=== PATIENT | female | born 1955 | race Caucasian/White ===

== ENCOUNTER 2017-08-05 11:34 | Inpatient (IN) | payer OTHER ==
--- NOTE | 2017-08-05 11:32 | EDPHY ---
H & P Time Seen by Provider: 08/05/17 11:35 Constitutional: Initial Vital Signs Temperature (C) 36.5 C 08/05/17 12:00 Heart Rate 52 L 08/05/17 12:00 Respiratory Rate 16 08/05/17 12:00 Blood Pressure 105/69 08/05/17 12:00 O2 Sat (%) 99 08/05/17 12:00 O2 Delivery Mode Nasal Cannula O2 (L/minute) 3 Allergies/Adverse Reactions: Sulfa (Sulfonamide Antibiotics) Allergy (Verified 08/05/17 11:43) Home Medications: Medication Instructions Recorded Aspirin 08/05/17 Medical Decision Making - Diagnostics Imaging Results: Imaging Impressions Chest X-Ray 08/05/17 11:41 Impression: Clear lungs. No acute process. Imaging: I viewed and interpreted images myself ED Course/Re-evaluation: CHIEF COMPLAINT: Cardiac Alert, neck pain HISTORY OF PRESENT ILLNESS: The patient is a 61 y/o female with a history of hypercholesterolemia and scoliosis arriving emergently via EMS from home as a Cardiac Alert with acute onset left lateral neck pain onset one week ago and worsening acutely one hour ago with nausea. She was evaluated at [facility] recently for this spinal pain, but it does not sound like she had a cardiac evaluation while there. This morning her pain became severe so she took 10mg oxycodone, but had no alleviation with this. EMS evaluated her this morning and upon performing an EKG saw inferior STEMI and brought her emergently here. She received 324mg PO aspirin en route. She normally takes a daily baby aspirin. Her father had an NM in his 60s. REVIEW OF SYSTEMS: A 10 point review of systems was performed and is negative with the exception of the elements mentioned in the history of present illness. PHYSICAL EXAM: HR 53, BP 105/69, O2 Sat, RR. Temp noted General Appearance: Alert, well hydrated, appropriate, and lethargic- appearing. Pale, diaphoretic. Head: Atraumatic without scalp tenderness or obvious injury Eyes: Pupils equal, round, reactive to light and accommodation, EOMI, no trauma , no injection. Nose: Atraumatic, no rhinorrhea, clear. Throat: Mucus membranes moist. Neck: Supple, nontender, no lymphadenopathy. Respiratory: No retractions, no distress, no wheezes, and no accessory muscle use. Lungs are clear to auscultation bilaterally. Cardiovascular: Bradycardic regular rate and rhythm, no murmurs, rubs, or gallops. Good capillary refill all extremities. Gastrointestinal: Abdomen is soft, nontender, non-distended, no masses, no rebound, no guarding, no peritoneal signs. Musculoskeletal: Normal active ROM of all extremities, atraumatic. Neurological: Alert, appropriate, and interactive. The patient has non-focal cranial nerves, motor, sensory, and cerebellar exam. Skin: No rashes, good turgor, no nodules on palpation. Pale, diaphoretic. Past medical history: Scoliosis, thyroid, high cholesterol Past surgical history: Spinal surgeries - most recent 2007 Family history: Father had diabetes, NM in his 60s Social history: , at bedside. DIAGNOSTICS/PROCEDURES/CRITICAL CARE TIME: Prehospital EKG: STEMI - inferior elevation with reciprocal changes The 12 lead EKG was interpreted by myself. Inferior STEMI with precordial reciprocal changes. See hard copy and/or "tracemaster" electronic copy for interpretation. Chest x-ray: negative. Critical care time spent by me, Dr. Koenig, exclusively with this patient was 35 minutes, exclusive of PA time and exclusive of procedures. The organ system at risk was cardiovascular. Time spent in urgent assessment, activation of Cardiac Alert, serial assessments of patient, discussion with patient and family , consideration of interventions, review of EKGs, imaging, labs, and consultation cardiology. DIFFERENTIAL DIAGNOSIS: The differential diagnosis for the patient's symptoms included but was not limited to myocardial ischemia, pulmonary embolus, chest wall pain, pleural inflammation, and pulmonary infectious causes. MEDICAL DECISION MAKIN: Met EMS upon arrival and took report. Dr. Willett, laboratory equipment cleaner, at bedside. Interventionalist paged. This is a 61 y/o female who presents progressive neck pain over the last week and inferior STEMI on prehospital EKG. She appears fatigued, pale, and diaphoretic on exam here. mill labor supervisor has been activated. Plan for IV, labs, EKG, chest x-ray while waiting for cath team. EKG here confirms inferior STEMI. 1138: Plavix preload ordered at Dr. Crockett's request, dish machine operator. Patient sent directly to ballistics laboratory gunsmith. - Data Points Laboratory Results: Laboratory Results 08/05/17 11:37 08/05/17 11:37 05/06/18 08/05/17 08/05/17 11:37 11:37 11:37 WBC 8.58 10^3/uL 10^3/uL (3.80-9.50) RBC 4.44 10^6/uL 10^6/uL (4.18-5.33) Hgb 13.5 g/dL g/dL (12.6-16.3) Hct 41.3 % % (38.0-47.0) MCV 93.0 fL fL (81.5-99.8) MCH 30.4 pg pg (27.9-34.1) MCHC 32.7 g/dL g/dL (32.4-36.7) RDW 13.2 % % (11.5-15.2) Plt Count 331 10^3/uL 10^3/uL (150-400) MPV 9.4 fL fL (8.7-11.7) Neut % (Auto) 57.9 % % (39.3-74.2) Lymph % (Auto) 31.4 % % (15.0-45.0) Piute % (Auto) 7.2 % % (4.5-13.0) Eos % (Auto) 3.0 % % (0.6-7.6) Baso % (Auto) 0.3 % % (0.3-1.7) Nucleat RBC Rel Count 0.0 % % (0.0-0.2) Absolute Neuts (auto) 4.96 10^3/uL 10^3/uL (1.70-6.50) Absolute Lymphs (auto) 2.69 10^3/uL 10^3/uL (1.00-3.00) Absolute Monos (auto) 0.62 10^3/uL 10^3/uL (0.30-0.80) Absolute Eos (auto) 0.26 10^3/uL 10^3/uL (0.03-0.40) Absolute Basos (auto) 0.03 10^3/uL 10^3/uL (0.02-0.10) Absolute Nucleated RBC 0.00 10^3/uL 10^3/uL (0-0.01) Immature Gran % 0.2 % % (0.0-1.1) Immature Gran # 0.02 10^3/uL 10^3/uL (0.00-0.10) PT 13.7 SEC SEC (12.0-15.0) INR 1.03 (0.83-1.16) APTT 21.8 SEC L SEC (23.0-38.0) Sodium 139 mEq/L mEq/L (135-145) Potassium 4.7 mEq/L mEq/L (3.5-5.2) Chloride 100 mEq/L mEq/L (97-110) Carbon Dioxide 23 mEq/l mEq/l (22-31) Anion Gap 16 mEq/L mEq/L (8-16) BUN 21 mg/dL mg/dL (7-23) Creatinine 1.0 mg/dL mg/dL (0.6-1.0) Estimated GFR 56 Glucose 155 mg/dL H mg/dL (70-100) Calcium 9.5 mg/dL mg/dL (8.5-10.4) Troponin I 0.733 ng/mL H ng/mL (0.000-0.034) Medications Given: Atorvastatin Calcium (Lipitor) 40 mg PO DAILY CHRISTIANO Stop: 02/01/18 13:14 Last Admin: 08/05/17 14:24 Dose: 40 mg Discontinued Medications Clopidogrel Bisulfate (Plavix) 600 mg PO EDNOW ONE Stop: 08/05/17 11:46 Last Admin: 08/05/17 12:03 Dose: 600 mg Sodium Chloride (Ns) 1,000 mls @ 0 mls/hr IV ONCE ONE PRN Reason: Wide Open Stop: 08/05/17 12:11 Last Admin: 08/05/17 12:00 Dose: 1,000 mls Departure - Departure Disposition: [facility] Acute Clinical Impression: STEMI (ST elevation myocardial infarction) Qualifiers: Involved coronary artery: right coronary artery Qualified Code(s): I21.11 - ST elevation (STEMI) myocardial infarction involving right coronary artery Condition: Critical Report Scribed for: Olman Koenig Report Scribed by: Dinora Mckeon Date of Report: 08/05/17 Time of Report: 11:38
[2017-08-05] MEDS ORDERED: CLOPIDOGREL BISULFATE 75 MG TAB ONE (11:38)
[2017-08-05] MEDS ORDERED: ASPIRIN 81 MG CHEWABLE TAB ONE (11:40)
[2017-08-05] MEDS ORDERED: CLOPIDOGREL BISULFATE 75 MG TAB PO ONE (11:45)
[2017-08-05 11:49] LABS: PLATELET COUNT 331 10^3/uL (150-400)
[2017-08-05] MEDS ORDERED: LIDOCAINE 1% 300 MG/30 ML SDV ONE (11:54)
[2017-08-05] MEDS ORDERED: fentaNYL 100 MCG/2 ML INJ ONE (11:54)
[2017-08-05] MEDS ORDERED: IOPAMIDOL (ISOVUE-370) 150 ML BTL IV ONE (11:54)
[2017-08-05] MEDS ORDERED: MIDAZOLAM 2 MG/2 ML VIAL ONE (11:54)
[2017-08-05] MEDS ORDERED: NITROGLYCERIN 1,500 MCG/15 ML VIAL MISC ONE (11:55)
[2017-08-05] MEDS ORDERED: BIVALIRUDIN 250 MG/5 ML VIAL IV ONE (11:55)
[2017-08-05 11:57] LABS: INR 1.03 (0.83-1.16); PROTIME(PATIENT) 13.7 SEC (12.0-15.0)
--- NOTE | 2017-08-05 12:01 | CPEKG ---
Heart Rate: 54 RR Interval: 1111 P-R Interval: 376 QRSD Interval: 74 QT Interval: 524 QTC Interval: 497 P [place]: 89 QRS [place]: 83 EKG Severity - ABNORMAL ECG - EKG Impression: SINUS RHYTHM EKG Impression: FIRST DEGREE AV BLOCK EKG Impression: INFERIOR INJURY, PROBABLE EARLY ACUTE INFARCT EKG Impression: CONSIDER POSTERIOR WALL INVOLVEMENT EKG Impression: BORDERLINE PROLONGED QT INTERVAL Electronically Signed By: Olman Koenig 05-Aug-2017 14:44:19
[2017-08-05] MEDS ORDERED: NS 1,000 ML IV ONE (12:10)
[2017-08-05] MEDS ORDERED: ATROPINE SULFATE 1 MG/10 ML SYR ONE (12:12)
[2017-08-05] MEDS ORDERED: EPINEPHrine 1 MG/10 ML SYR IVP ONE (12:12)
[2017-08-05] MEDS ORDERED: ONDANSETRON 4 MG/2 ML VIAL IVP PRN (13:06)
[2017-08-05] MEDS ORDERED: ACETAMINOPHEN 325 MG TAB PO PRN (13:06)
--- NOTE | 2017-08-05 13:07 | ASMTCMCOM ---
CM Note CM Note Notes: Pt presented to the Emergency Department via EMS with neck pain. History includes hypercholesterolemia, scoliosis, thyroid, spinal surgery in 2007. Pt found to have an inferior STEMI, taken to the medical lab technologist emergently. Pt's , Nimesh Ge at bedside. Emotional support provided to pt's . Education provided on diagnosis, procedure, plan of care. 's questions answered. given pt's jewelry including a yellow, gold colored watch, yellow, gold colored necklace and yellow, gold colored ankle bracelet. Pt's wedding ring and earrings left in place, on pt. Escorted to medical lab technologist/surgery waiting area. shown around hospital (cafeteria, restrooms, main entrance, ICU location). Pt's discharge needs remain unclear at this time. CM phone number provided to . CM will continue to follow pt and will remain available for any further issues, needs or concerns. Current Discharge Plan: To be determined Date Signed: 08/05/2017 01:05 PM Electronically Signed By:Raquel Lancaster RN
--- NOTE | 2017-08-05 13:08 | GHP ---
[f rep st] HISTORY AND PHYSICAL DATE OF ADMISSION: 08/05/2017 INDICATIONS: Acute inferior wall ST-elevation myocardial infarction. HISTORY OF PRESENT ILLNESS: The patient is 61 years old. She is generally fairly healthy. She stat es that she has a history of hypertension. Additionally, she has had back surgery in the past. She presents to the emergency department with acute nausea. Her symptoms began about an hour ago. At th at time, she had intractable nausea and as a result, called 911. She was transported to the emergenc y department via EMS. Pre-hospital ECG demonstrated ST elevations in the inferior leads. On arrival here, she was having acute jaw and neck pain. Her initial electrocardiogram demonstrated a sinus rh ythm with a 2:1 AV block. This was associated with [address] elevations extending into the lateral precordial leads. PAST MEDICAL HISTORY: Hypertension, back pain. PAST SURGICAL HISTORY: History of back surgery in the distant past. ALLERGIES: To none. SOCIAL HISTORY: She is and accompanied by her . She does not smoke, abuse alcohol or drugs. FAMILY HISTORY: Negative for premature atherosclerosis. REVIEW OF SYSTEMS: A 10-point review of systems was performed and was otherwise negative. PHYSICAL EXAMINATION: VITAL SIGNS: Blood pressure was 89/62, with a mean of 71, pulse 52, heart rat e 99, and oxygen saturations 99% on 2 L. GENERAL: She is acutely ill in appearance. She is activel y complaining of neck and jaw discomfort, and is nauseated. HEENT: No jugular venous distention. D ry mucous membranes. RESPIRATORY: She speaks in full sentences and is breathing easily. She has no rales, wheezes, or rhonchi on exam. No accessory muscles are being used. CARDIAC: Precordial insp ection is unremarkable. PMI is nondisplaced. She is bradycardic. No murmurs, gallops, or rubs are noted. ABDOMEN: Soft and nontender, with normoactive bowel sounds. EXTREMITIES: Clammy and cool. She has 1+ radial and dorsal pedal pulses. NEUROLOGIC: She is alert and oriented, with a pleasant mood and affect. IMPRESSION: The patient is 61 years old. She presents with an acute inferior wall ST-elevation myoc ardial infarction, with evidence of 2:1 atrioventricular block and early shock. PLAN: She will be taken emergently to cardiac catheterization. /[id number]/MODL
--- NOTE | 2017-08-05 13:33 | CPIP ---
[f rep st] INVASIVE CARDIAC PROCEDURE DATE OF PROCEDURE: 08/05/2017 INDICATION FOR PROCEDURE: Inferior STEMI. PROCEDURE: 1. Nonselective right groin sheathogram. 2. Bilateral selective coronary angiography. 3. Left heart catheterization. 4. Left ventriculogram. 5. Percutaneous coronary intervention of proximal right coronary artery utilizing Synergy 3.0 x 60 m m drug-eluting stent and percutaneous coronary intervention of mid right coronary artery utilizing 3. 0 x 24 mm drug-eluting stent. DESCRIPTION OF PROCEDURE: Briefly, this is a 61-year-old female with history of hypercholesterolemia , who presented to [facility] complaining of chest pain. The patient was found to have traumatic ST elevations in her inferior leads with reciprocal changes in V1 and V3, indicating most like an inferior posterior SC. Cardiac labor conciliator was activated. The patient was brought up. After i nformed consent, the patient's right groin was prepped and draped in sterile fashion. Using lidocain e, a short 6-Northern Irish sheath placed in the right femoral artery verified angiographically. The patient was Plavix p.o. A JL4 catheter was advanced to the left coronary artery which showed nor mal left main. Left circumflex artery had 40% disease in its midportion before the takeoff of a maya inal 1 artery. The LAD was a long vessel which wrapped around the apex. The LAD had in its midporti on what appeared to be 40% disease, followed by another area distally of 30% to 40% disease. There w ere small diagonal arteries coming off the LAD which did not appear to have significant disease. Aft er these images had been obtained, the JL4 catheter was removed. The JR4 6-Northern Irish guide catheter was advanced to right coronary artery which revealed 100% occluded proximal RCA. INTERVENTION REPORT: At this time, the patient was started on Angiomax bolus and drip. A Choice PT wire was advanced through the guide across the proximal RCA and placed into what appeared to be the R PDA. Just with the wire manipulation alone, it appeared that the lesion revealed itself and there ap peared to be a 99% proximal RCA lesion. The RPD and RPLS appeared to be widely patent. A 2.5 x 12 b alloon was placed in the prox RCA and inflated to 10 atmospheres. After deflation and removal, angio graphy was obtained which showed improved patency of the prox RCA. The staff proceeded with stenting of this vessel with a 3.0 x 16 mm Synergy drug-eluting stent. It was deployed successfully at 14 at mospheres. After deployment, angiographic images were obtained, which showed excellent patency of th e stented area with no evidence of dissection or perforation. However, in the mid RCA now, there jeanette eared to be after verification of views in the MAGGY cranial and GUTIERREZ, that the mid RCA did have a tubul ar area of 7% stenosis. The patient's pressure was still quite soft at this point. Thus, rather avelina n assuming this was spasm and given the fact that there was significant wire manipulation across the lesion to get across this area, we decided to proceed with addressing this area. A 3.0 x 24 mm Syner gy drug-eluting stent was then placed across this area successfully at 14 atmospheres. After deflati on, angiographic exam was obtained which showed excellent patency of the entire RCA with no evidence of any perforation, dissection, or narrowing proximal or distal to the stented areas. The RPD and RP LS had mild 20% to 30% diffuse disease throughout its courses, but no high-grade stenosis. The RPDA did have a focal area of 40% to 50% disease proximally. However, no intervention was deemed necessar y at this point. The wire was removed back. The JR4 6-Northern Irish guide was pulled back and the pigtail catheter advanced to left ventricle. LVEDP is 22 mmHg. Left ventriculography in the GUTEIRREZ projection showed EF of 45% with mild inferior wall hypokinesis. No pullback gradient between the LV and the ao rta. Pigtail catheter removed over the 0.035 wire. Right groin was closed using 6-Northern Irish Angio-Seal . The patient tolerated the procedure well with no complications. IMPRESSION: 1. Successful percutaneous coronary intervention of 100% occluded proximal right coronary artery wit h 2 Synergy drug-eluting stents. 2. Moderate noncritical disease in the left anterior descending and left circumflex system to be meenakshi ated medically. 3. Mildly reduced ejection fraction of 45% with mild inferior wall hypokinesis. PLAN: The patient should remain on aspirin and Plavix, statin and beta-rudolph if blood pressure lay l allow. Continue per clinical course. /[id number]/MODL
[2017-08-05] MEDS: ATORVASTATIN CALCIUM 40 MG TAB PO SCH (14:24)
--- NOTE | 2017-08-05 14:44 | PDMN ---
Medical Necessity Medical necessity: C/M review: est. > 2 MN LOS for eval and TX of acute inferior ST elevation myocardial infarction requiring emergent 08/05/2017 cardiac catheterization - LHC, PCI with stents x 2 to RCA and ongoing post procedure cardiac monitoring, pulse oximetry, supplemental O2, close monitoring in ICU, comorbid history of hypertension, back pain, back surgery in the past per H/P, Interventional Cardiac procedure report.
[2017-08-05 17:14] LABS: CREATINE KINASE 745 IU/L (0-156)
[2017-08-05] MEDS ORDERED: CETIRIZINE 10 MG TAB PO ONE (18:45)
[2017-08-05 20:10] LABS: CREATINE KINASE 1035 IU/L (0-156)
[2017-08-05] MEDS: ACETAMN/DIPHENHYDRAMINE 500/25MG TAB PO SCH (21:03)
[2017-08-05 23:27] LABS: CREATINE KINASE 1021 IU/L (0-156)
[2017-08-06] MEDS ORDERED: ACETAMN/DIPHENHYDRAMINE 500/25MG TAB PO ONE (01:30)
[2017-08-06 04:52] LABS: PLATELET COUNT 291 10^3/uL (150-400)
[2017-08-06 05:27] LABS: CREATINE KINASE 819 IU/L (0-156)
[2017-08-06] MEDS ORDERED: CLOBETASOL 0.05% 15 GM CRTUBE TP PRN (09:02)
--- NOTE | 2017-08-06 09:12 | SOAPPROG ---
[facility] Progress Note Assessment/Plan: 1. IMI - Pt presented with an acute IMI. She was found to have an occluded proximal RCA. She was treated with stents x 2. LVEF = 45 to 50%. Peak CPK 1035. Pt denies symptoms of angina and CHF. No significant arrhythmias on monitoring. --> Continue asa, plavix, and lipitor --> Will start coreg today. Consider losartan as BP will tolerate. Pt reports cough with lisinopril --> Echocardiogram in 4 weeks to evaluate inferior wall. 2. Hyperlipidemia - LDL = 118. Goal is less than 70. Pt started on lipitor 40 mg daily. --> FLP and LFTs in 3 months 3. HTN - Pt has a history of HTN. Pt previously managed with norvasc. Will transition to coreg and losartan 4. HRT - Pt is on HRT for the last 10 years. Reviewed the risks and benefits of therapy given acute event. Pt wishes to continue Subjective: No chest pain No orthopnea or PND limited ambulation Objective: Vital Signs Temp Pulse Resp BP Pulse Ox 36.8 C 91 22 H 117/70 98 08/06/17 08:00 08/06/17 08:00 08/06/17 08:00 08/06/17 08:00 08/06/17 08:00 Laboratory Results 08/06/17 04:40 08/05/17 16:20 08/05/17 08/06/17 08/07/17 05:59 05:59 05:59 Intake Total 900 480 Output Total 1300 Balance -400 480 PT 13.7 SEC (12.0-15.0) 08/05/17 11:37 INR 1.03 (0.83-1.16) 08/05/17 11:37 - Time Spent With Patient Time Spent With Patient: greater than 50% of this 30 min visit was spent discussing her condition and treatment strategies. Physical Exam - Physical Exam General Appearance: alert, no apparent distress Respiratory: lungs clear Cardiac/Chest: regular rate, rhythm Abdomen: non-tender, soft Extremities: other (No hemtoma or echymosis R inguinal access site. 2+ DP.), No pedal edema Neuro/Psych: alert, oriented x 3 ICD10 Worksheet Patient Problems: Problems Problem Status Onset STEMI (ST elevation myocardial infarction) Acute
[2017-08-06] MEDS: ASPIRIN EC 81 MG TAB PO SCH (09:13)
[2017-08-06] MEDS: ATORVASTATIN CALCIUM 40 MG TAB PO SCH (09:13)
[2017-08-06] MEDS: CLOPIDOGREL BISULFATE 75 MG TAB PO SCH (09:13)
[2017-08-06] MEDS: CARVEDILOL 3.125 MG TAB PO SCH ×2 (09:55→18:18)
[2017-08-06] MEDS: THYROID 60 MG TAB PO SCH (09:56)
[2017-08-06] MEDS ORDERED: THYROID 60 MG TAB PO SCH (10:00)
--- NOTE | 2017-08-06 12:34 | CPEKG ---
Heart Rate: 82 RR Interval: 732 P-R Interval: 156 QRSD Interval: 72 QT Interval: 452 QTC Interval: 528 P [place]: 82 QRS [place]: 40 T Wave [place]: -76 EKG Severity - ABNORMAL ECG - EKG Impression: SINUS RHYTHM EKG Impression: Inferolateral ST depression and T inversion, possible ischemia EKG Impression: PROLONGED QT INTERVAL Electronically Signed By: Lane Montes 08-Aug-2017 05:53:04
--- NOTE | 2017-08-06 13:44 | ECHO ---
[email or web address] [address] [address] Main: [phone] Fax: Transthoracic Echocardiogram Name: HERVE MORRIS MR#: [id number] Study Date: 08/05/2017 Study Time: 02:26 PM Date of : 1955 Age: 61 year(s) Height: 175.3 cm (69 in.) Weight: 62.6 kg (138 lb.) BSA: 1.76 m2 Gender: Female Examination: Echo Indication: STEMI Image Quality: Technically Difficult Contrast: Requested by: Puneet Crockett BP: 123 mmHg/80 mmHg Heart Rate: Rhythm: Normal sinus rhythm Indication: STEMI Procedure Staff Core Drier: Pearl Segura [facility] Reading Physician: Judy Charles MD Requesting Provider: Conclusions: Normal size left ventricle. No LV hypertrophy. Normal global systolic LV function. EF is 56 %. The basal inferior, basal inferolateral and mid inferior wall segments are hypokinetic. Normal size right ventricle. Normal RV function. Trivial to mild mitral regurgitation. Pulmonary artery pressure is not obtained due to inadequate TR jet. No prior echo Measurements: Chambers Valvular Assessment AV/MV Valvular Assessment TV/PV Normal Normal Normal Name Value Range Name Value Range Name Value Range Ao Anne (MM): 2.3 cm (2.2 cm-3.7 AV Vmax: 0.79 m/s (1 m/s-1.7 PV Vmax: 0.66 m/s (0.6 m/s-0.9 cm) m/s) m/s) IVSd (2D): 1.3 cm (0.6 cm-1.1 AV maxP mmHg ( - ) PV PGmax: 2 mmHg ( - ) cm) LVOT Vmax: 0.80 m/s (0.7 m/s-1.1 LVDd (2D): 2.9 cm (3.9 cm-5.3 m/s) cm) MV E Vmax: 0.92 m/s ( - ) LVDs (2D): 1.8 cm (2.1 cm-4 MV A Vmax: 0.88 m/s ( - ) cm) MV E/A: 1.05 ( - ) LVPWd (2D): 0.7 cm ( - ) LVEF (BP): 56 % (>=55 %) RVDd(2D): 2.2 cm (1.9 cm-3.8 cmmm) Continued Measurements: Chambers Patient: HERVE MORRSI Study Date: 08/05/2017 Page 1 of 2 02:26 PM Name Value LADs Lon.3 cm LA Area: 11.2 cm2 LA Volume: 24 ml LA Volume Index: 13.6 ml/m2 RA Area: 8.0 cm2 Findings: Left Ventricle: Normal size left ventricle. No LV hypertrophy. Normal global systolic LV function. EF is 56 %. The basal inferior, basal inferolateral and mid inferior wall segments are hypokinetic. Right Ventricle: Normal size right ventricle. Normal RV function. Left Atrium: The left atrium is normal in size. Right Atrium: The right atrium is normal in size. Mitral Valve: The mitral valve is normal in appearance and function. Trivial to mild mitral regurgitation. No mitral stenosis is present. Aortic Valve: Aortic valve is not well visualized. Aortic sclerosis is present. There is no aortic valve regurgitation. No aortic valve stenosis is present. Tricuspid Valve: The tricuspid valve is normal in appearance and function. There is no tricuspid valve regurgitation. Pulmonary artery pressure is not obtained due to inadequate TR jet. Pulmonic Valve: Pulmonary valve not well visualized. Aorta: Ascending aorta not well visualized. The aorta is normal. Normal size aortic root measuring 2.3 cm. IVC: Normal size and course of the IVC. Pericardium: No pericardial effusion. (No Signature Object) Wall Motion Scores -1 - Not Scored, 0 - Unknown, 1 - Normal or hyperkinesia, 2 - Hypokinesia, 3 - Akinesia, 4 - Dyskinesia, 5 - Aneurysm Patient: HERVE MORRIS Study Date: 08/05/2017 Page 2 of 2 02:26 PM [id number]
[2017-08-06] MEDS: ACETAMN/DIPHENHYDRAMINE 500/25MG TAB PO SCH (20:59)
[2017-08-06] MEDS ORDERED: MAGNESIUM OXIDE 800 MG PO SCH (21:00)
[2017-08-06] MEDS ORDERED: NON-FORMULARY NEW DRUG (Progesterone, Micronized [Progesterone] 200 MG) PO SCH (21:00)
[2017-08-06] MEDS ORDERED: PROGESTERONE,MICR 100 MG CAP PO SCH (21:00)
[2017-08-06] MEDS ORDERED: MAGNESIUM OXIDE 400 MG TAB PO SCH (21:00)
[2017-08-06] MEDS ORDERED: FLUoxetine 20 MG CAP PO SCH (21:00)
[2017-08-07] MEDS: ATORVASTATIN CALCIUM 40 MG TAB PO SCH (08:48)
[2017-08-07] MEDS: THYROID 60 MG TAB PO SCH (08:48)
[2017-08-07] MEDS: CLOPIDOGREL BISULFATE 75 MG TAB PO SCH (08:49)
[2017-08-07] MEDS: ASPIRIN EC 81 MG TAB PO SCH (08:49)
[2017-08-07] MEDS: CARVEDILOL 3.125 MG TAB PO SCH (08:49)
[2017-08-07 09:00] VITALS: BP 131/79
[2017-08-07] MEDS ORDERED: CHOLECALCIFEROL VIT D3 1,000 UNITS TAB PO SCH (09:00)
[2017-08-07] MEDS ORDERED: ESTRADIOL VIVELLE 0.1 MG PATCH TD SCH (09:02)
--- NOTE | 2017-08-07 09:05 | CPEKG ---
Heart Rate: 83 RR Interval: 723 P-R Interval: 172 QRSD Interval: 76 QT Interval: 440 QTC Interval: 517 P [place]: 89 QRS [place]: 55 T Wave [place]: -79 EKG Severity - ABNORMAL ECG - EKG Impression: SINUS RHYTHM EKG Impression: T-wave inversions inferolateral leads query ischemia EKG Impression: PROLONGED QT INTERVAL Electronically Signed By: Reji Leroy 07-Aug-2017 09:42:43
--- NOTE | 2017-08-07 10:06 | ASDISCHSUM ---
Discharge Information Plan Status:Home with No Needs Medically Cleared to Leave:08/07/2017 Discharge Date:08/07/2017 CM D/C Disposition:Home, Routine, Self-Care ADT D/C Disposition: Projected Discharge Date:08/07/2017 Transportation at D/C:Family Discharge Delay Reason: Follow-Up Date:08/07/2017 Discharge Slot: Final Diagnosis:Inferior STEMI, scoliosis, spinal surgery, thyroid Placement Information Patient Contact Information Contact Name:CELY Relationship: Address:[address] City:[place] Alternate Phone: [facility]/Zip Code:[place] [address] Email: Financial Information Financial Class:HMO and PPO Plans Primary Plan Desc:[facility] Primary Plan Number:[id number] Secondary Plan Desc:MEDICARE INPATIENT Secondary Plan Number:[id number] Assessment Information LACE LACE Length of stay for Answers: 1 day current admission Acuity / Level of Answers: Yes Care: Did the patient have an inpatient admission? Comorbidities - select Answers: Coronary Artery Disease all that apply Other Notes: STEMI, thyroid, scolios is, spinal surgery, hypercholester mary a # of Emergency department Answers: 1-2 visits in the last 6 months Score: 8 Date Signed: 08/07/2017 10:05 AM Electronically Signed By:Candace Moreno RN [facility] Progress Note CM Note CM Note Notes: Pt presented to the Emergency Department via EMS with neck pain. History includes hypercholesterolemia, scoliosis, thyroid, spinal surgery in 2007. Pt found to have an inferior STEMI, taken to the supervisor dental laboratory emergently. Pt's , Nimesh Ge at bedside. Emotional support provided to pt's . Education provided on diagnosis, procedure, plan of care. 's questions answered. given pt's jewelry including a yellow, gold colored watch, yellow, gold colored necklace and yellow, gold colored ankle bracelet. Pt's wedding ring and earrings left in place, on pt. Escorted to supervisor dental laboratory/surgery waiting area. shown around hospital (cafeteria, restrooms, main entrance, ICU location). Pt's discharge needs remain unclear at this time. CM phone number provided to . CM will continue to follow pt and will remain available for any further issues, needs or concerns. Current Discharge Plan: To be determined Date Signed: 08/05/2017 01:05 PM Electronically Signed By:Raquel Lancaster RN Case Management Discharge Plan Note Case Management Discharge Discharge Order Complete? Answers: Yes Patient to Obtain Answers: Independently Medications Transportation Arranged Answers: Family/Friends Discharge Comments Notes: 08/07/2017 Case Management Note Pt to discharge independent with follow up as directed. Date Signed: 08/07/2017 10:05 AM Electronically Signed By:Candace Moreno RN Intervention Information Intervention Type:Emotional Support Date of Service:08/05/2017 12:50 PM Patient Type:Emergency Room Staff Member:JUVENAL Lancaster Taylor Hours:0.5 Discipline: Severity: Comment:Emotional support provided to pt's jenna sujey Beavers. Questions answered, reassurance provided.
--- NOTE | 2017-08-07 10:24 | GDS ---
[f rep st] DISCHARGE SUMMARY DISCHARGE DIAGNOSES: 1. Acute inferior myocardial infarction. The patient presented with an acute inferior ST-segment el evation myocardial infarction. She was found to have a totally occluded proximal right coronary vineet ry. She was treated with 2 Synergy drug-eluting stents in the proximal and mid right coronary artery . Her peak CPK was 1035. Her left ventricular ejection fraction immediately post procedure was 45% to 50%. Patient denied recurrent symptoms of angina and congestive heart failure. Patient had no si gnificant arrhythmias while on telemetry monitoring. She will be managed medically with aspirin, Yue vix, Coreg, and Lipitor. Ideally patient will be started on losartan as she has a previous ADR to li sinopril in approximately 1 week's period of time. 2. Hyperlipidemia. Patient's LDL cholesterol was 118 on admission. Her goal LDL is less than 70 ba sed on coronary artery disease. Patient was started on Lipitor 40 mg daily. Would repeat FLP and LF Ts in approximately 3 months' period of time. 3. Hypertension. Patient has a history of hypertension. Her blood pressure was previously well con trolled on Norvasc. We will transition to Coreg and losartan given her coronary artery disease. 4. Hormone replacement therapy. Patient has been on hormone replacement therapy for the last 10 yea rs with estrogen and progesterone. Reviewed risks and benefits of estrogen therapy in the setting of coronary artery disease. Patient wishes to continue for now. SUMMARY OF PRESENTATION AND COURSE: The patient is a 61-year-old female with risk factors including age and hypertension who presented with an acute inferior ST-segment elevation myocardial infarction. She was taken to the cardiac catheterization laboratory for risk stratification. Coronary angiogra phy demonstrated single-vessel disease involving the right coronary artery. The patient was treated with percutaneous coronary intervention of her right coronary artery using Synergy drug-eluting stent s. Her postprocedural course was uneventful. The patient denied recurrent symptoms of angina and co ngestive heart failure. There were no significant arrhythmias on telemetry monitoring. At the time of discharge, patient was ambulating without difficulty, and her risk factors were addressed as noted above. PHYSICAL EXAM: GENERAL: At the time of discharge, generally patient was resting comfortably in bed. VITAL SIGNS: Temperature was afebrile. Pulse was 90, blood pressure was 115/76, respiratory rate was 16, SaO2 was 94% on room air. LUNGS: Clear to auscultation bilaterally. CARDIOVASCULAR: Regul ar rate and rhythm. S1, S2. No murmurs, rubs, or gallops appreciated. ABDOMEN: Soft, nontender. Normoactive bowel sounds. No evidence of hematoma or ecchymosis at the right common femoral access s ite. EXTREMITIES: The patient had 2+ dorsalis pedis and posterior tibial pulses on the right. LABORATORY: At the time of discharge, white blood cell count was 8.99, hemoglobin 12.0, hematocrit 3 6.6, platelet count 291. Chemistry: Sodium 137, potassium 4.6, chloride 101, CO2 of 24, BUN 17, cre atinine 0.8. DISCHARGE MEDICATIONS: Please see discharge medicine reconciliation form. INSTRUCTIONS AND ARRANGEMENTS FOR FOLLOWUP: 1. Patient should return to the emergency department for groin complications as outlined at the time of discharge. 2. Patient should return to the emergency department for recurrent symptoms of angina. 3. Patient instructed on groin precautions post procedure. 4. Patient should follow up with [facility] in approximately 1-2 weeks' period of time to ini tiate losartan therapy and arrange for cardiac rehab. /[id number]/MODL
== END 2017-08-07 11:08 | disposition home or self-care (01) | DRG 247 ==
LOC: EDUNIT# → F2N 13:00 → F2W 08-06 11:49
PROVIDERS: ADMIT Internal Medicine Cardiovascular Disease; ATTEND Internal Medicine Cardiovascular Disease
DX: I21.11 ST elevation (STEMI) myocardial infarction involving right coronary artery (principal); I25.10 Atherosclerotic heart disease of native coronary artery without angina pectoris; E78.5 Hyperlipidemia, unspecified; I10 Essential (primary) hypertension; Z79.890 Hormone replacement therapy
CPT/HCPCS: C1725; C1760; C1769; C1874; C1887; C9606; J0461; J0583; J1644; J2250; J2270; J2405; J3010; Q9967